=== PATIENT | male | born 1945 | race Caucasian/White ===

== ENCOUNTER → 2016-07-19 | Outpatient (CLI) | payer MEDICARE, BC ==
[~2016-07-19] MED LIST: AMLO2.5T78 PO; ASPI325T32 PO; CELE200C PO; HYDR-762 PO; VIT500LI PO; [UNRECOGNIZED DRUG - OTHER]
--- NOTE | 2016-07-19 15:32 | RADRPT ---
PROCEDURE: XR right knee. CLINICAL INDICATION: Knee pain. TECHNIQUE: AP weightbearing, lateral weight bearing and sunrise views are available for review. 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 There is no evidence of loosening of the prosthesis. The osseous structures are normal in mineralization, architecture and alignment No acute fracture or dislocation is seen.No osseous lesions are identified. The soft tissues are unremarkable . IMPRESSION: Unremarkable constrained total knee replacement. RPTAT: HGDB .Jonel Mercer MD, MD Date Time Electronically viewed and signed by .Jonel Mercer MD, on 07/19/2016 15:32 .B/
--- NOTE | 2016-07-19 20:06 | HKNOTE ---
DATE OF SERVICE: 07/19/2016 Now 6 weeks following right total knee replacement. The patient had a left total knee replacement i november. He is very pleased with the result of his surgery. He comes in for a checkup. PHYSICAL EXAMINATION: His temperature is normal. The wound is healing well and is completely dry without any sign of infl ammation. Range of motion is 0 to 125 degrees. There is some generalized swelling of the soft tiss ues around the knee. IMAGING: X-rays of the knee obtained today show all components to be well aligned and well attached to the bone. MANAGEMENT: The patient will continue his physical therapy program, and he will be seen again in 6 weeks' time for re-evaluation. Dictated By: TIM DEVI/MARIA DEL CARMEN Conf#: [id number] DID#: [id number]
== END | disposition home or self-care (01) ==
LOC: HKI 13:32
DX: Z47.1 Aftercare following joint replacement surgery (principal); Z96.652 Presence of left artificial knee joint
CPT/HCPCS: 73562; G0463

== ENCOUNTER → 2016-08-30 | Outpatient (CLI) | payer MEDICARE, BC ==
--- NOTE | 2016-08-30 18:01 | HKNOTE ---
DATE OF SERVICE: 08/30/2016 The patient comes in for a 4-month check on his right total knee replacement. He is extremely pleas ed with the results of the surgery. He now has a flexion range to 130 degrees. He has had both his knees done. He is completely satisfied with the result of the surgery. He gets an occasional "twi nge of pain." PHYSICAL EXAMINATION: Both knees have an excellent range of motion without pain. MANAGEMENT: Given reassurance. Will be seen again for his 6-month postop appointment as previously arranged. Dictated By: TIM DEVI/NTS Conf#: [id number] DID#: [id number]
== END | disposition home or self-care (01) ==
LOC: HKI 13:22
DX: Z47.1 Aftercare following joint replacement surgery (principal); Z96.651 Presence of right artificial knee joint

== ENCOUNTER → 2016-12-06 | Outpatient (CLI) | payer MEDICARE, BC ==
--- NOTE | 2016-12-06 14:28 | PN ---
Date/Time of Note Date/Time of Note DATE: 12/06/16 TIME: 14:21 Outpatient Progress Note Chief Complaint 6 months status post right total knee arthroplasty HPI 71-year-old male presents today for 6 month follow-up status post right total knee arthroplasty performed on 06/07/2016. Patient states that his right knee is doing "excellent." Patient has no complaints to the right knee as he states that he has been doing very well and is returned to normal functionality. He is back to bowling without complication or hesitation. Patient even jokes that he is bowling "better" status post knee replacement. Patient is also status post left total knee arthroplasty on 12/10/2015. Denies any pain to the left knee. At times patient feels a "crunching" sensation but denies any limited functionality. No shortness of breath, chest pain/tightness. No decreased activity level. Patient is very pleased status post surgery and states that he feels much better than he did prior to bilateral knee replacements. Denies any falls. Review of Systems Const: No Fever, no chills, no Fatigue, normal appetite, no diaphoresis. Resp: No SOB, no wheezing, no chest pain. CV: No chest pain, no palpitaions, no ACOSTA. Physical Exam Blood pressure is 140/66, temperature is 98.3, pulse is 69, respiratory rate is 12, height is 5 foot 9 inches, weight is 185 pounds. General Appearance: well-developed, well-nourished, in no acute distress. Right knee: Gait is normal and nonantalgic. Patient has full range of motion to the right knee. No pain with range of motion. 5/5 strength on resistance with flexion and extension. Well-healed surgical scarring to the right knee as well. Mild increased laxity with varus and valgus stress. Left knee: Gait is normal and nonantalgic. Patient has full range of motion to the left knee. No pain with range of motion. There is crunching style sensation with flexion at is similar to that of scarring to the subdermal layer. 5/5 strength on resistance. Well-healed surgical scar to the left knee. Mild increased laxity with varus and valgus stress. Imaging: X-ray of the bilateral knee performed on 12/06/2016 showing all components appearing well aligned, attached and integrated to the bone. No signs of any lucency between metal and bone. Allergies Coded Allergies: No Known Drug Allergies (Verified Allergy, Unknown, 06/07/16) Assessment/Plan * Patient is doing well in regards to bilateral knee. Crunching sensation that patient is experiencing based off of physical exam findings as well as complaints appears to be scarring to the subcuticular tissues. Scarring does not limit patient's functionality or generate any pain of any sort. Advised to continue daily activities as tolerated. And as always, proceed with caution. * Patient confirms being in possession of antibiotic card given at prior visits. * Anti-inflammatories as needed for any discomfort. * Patient expresses pure gratitude as he is so pleased status post bilateral knee replacement surgeries. Requesting business card so he may refer other patients towards this office. We are very grateful and appreciative and also happy that we can improve patient's quality of life. * Follow-up as needed Antibiotic card provided for patient. Patient made aware that dental prophylaxis will be necessary prior to any dental procedure for the remainder of their lifetime. Patient is aware that they must contact their dentist prior to any procedure to inform them of previous joint replacement with prosthesis implant so appropriate antibiotic may be prescribed to lower risk of joint infection status post surgery. Card will also serve as confirmation should patient be traveling and have to go through security such as at an airport. Dr. Rivera was present for examination and agrees with plan. Medications Home Meds Active Scripts Hydrocodone Bit-Acetaminophen* ([place]*) 10-325 Mg Tablet, 1 TAB PO Q4H Y for PAIN for 30 Days, TAB Prov:LISHA SANDS MD 12/12/15 Celecoxib* (Celebrex*) 200 Mg Capsule, 200 MG PO BID for 14 Days, #14 CAP Prov:LISHA SANDS MD 12/12/15 Aspirin (Aspir-[place]) 325 Mg Tablet., 325 MG PO BID for 60 Days, #120 Prov:LISHA SANDS MD 12/12/15 Reported Medications Vit C-Ascorbate Ca-Ascorb Sod (Vitamin C) 500 Mg/15 Ml Liquid, 1000 MG PO DAILY , ML 12/10/15 Amlodipine Besylate* (Amlodipine Besylate*) 2.5 Mg Tablet, 2.5 MG PO DAILY, #30 TAB 12/10/15 [Bioflavanoids] No Conflict Check 12/10/15 ANGEL MEJIA PA-C December 06, 2016 14:28
--- NOTE | 2016-12-06 17:27 | RADRPT ---
PROCEDURE: XR bilateral knees. CLINICAL INDICATION: Knee pain. TECHNIQUE: AP weightbearing, lateral weightbearing and sunrise views of each knee are available fo r review. COMPARISON: 07/19/2016 FINDINGS: There are constrained total knee replacements. There is no evidence of loosening of the prosthesis. There is no evidence of hardware failure. The osseous structures are normal in mineralization, archi tecture and alignment No acute fracture or dislocation is seen.No osseous lesions are identified. T he soft tissues are unremarkable . IMPRESSION: Unremarkable bilateral constrained total knee replacements. RPTAT: HGDB .Jonel Mercer MD, MD Date Time Electronically viewed and signed by .Jonel Mercer MD, MD on 12/06/2016 17:27 .B/
== END | disposition home or self-care (01) ==
LOC: HKI 13:24
DX: Z47.1 Aftercare following joint replacement surgery (principal); Z96.651 Presence of right artificial knee joint
CPT/HCPCS: 73562; G0463

== ENCOUNTER → 2017-10-17 | Outpatient (CLI) | END | disposition home or self-care (01) ==